=== PATIENT | female | born 1945 | race Caucasian/White ===

== ENCOUNTER 2024-08-18 12:58 | Outpatient (AMB) | payer MEDICARE, SELFPAY ==
[2024-08-18 13:14] VITALS: BP 158/79; PULSE 66; RESP 19; TEMP 36.7; O2SAT 96; BMI 29.1
--- NOTE | 2024-08-18 13:14 | PD.GSCLVISIT ---
[facility] Sign[facility] - [facility] 08/18/24 13:14 Height 1.55 m Height Method Stated Weight 69.882 kg Weight Measurement Method Standing Scale BMI 29.1 BP 158/79 H Blood Pressure Source Automatic Cuff Blood Pressure Location Left Upper Arm Position Sitting Respiration 19 Pulse 66 Pulse Source Monitor Temp 98.1 F Temp Source Temporal Artery Scan Pulse Oximetry (%) 96 Oxygen Delivery Method Room Air Med/Allergies Allergies & Medications Allergies No Known Allergies Allergy (Verified 08/18/24 13:16) Medication Reconciliation simvastatin 40 mg tablet (Zocor) 40 mg PO HS #0 tabs 03/08/15 [History Confirmed 08/18/24] aspirin 81 mg tablet,delayed release 81 mg PO QDAY 11/12/18 [History Confirmed 08/18/24] celecoxib 200 mg capsule 200 mg PO DAILY 03/02/19 [History Confirmed 08/18/24] hydrochlorothiazide 12.5 mg tablet 12.5 mg PO QDAY 03/02/19 [History Confirmed 08/18/24] hydrocodone 5 mg-acetaminophen 325 mg tablet ([place]) 1 tab PO Q6H PRN pain #30 tabs 03/03/19 [Rx Confirmed 08/18/24] MA Intake Visit Data Collection New Patient or Established: New Patient (never been to [facility]) Seen by Clinical Staff ONLY (RN/MA): No Reason for Visit:: REFERRAL COLONOSCOPY Pain Present Currently: No Commercial Pest Control Technician Required: No PCP or OBGYN visit in last 3 months: Yes Hx Now: No Do You Feel Safe at Home: Yes Authorities Contacted: N/A Smoking Status Smoking Status: Never smoker Immunization / Flu Flu Vaccine in the Last 12 Months: Yes Flu Vaccine Exclusion Criteria: Already Received Past Medical History Past Medical History NEUROLOGIC: Negative Neurological Disorders or Seizures CARDIAC: Positive Cardiac Disorders, Hypercholesterolemia (TAKES MED) and Hypertension (TAKES MED); Negative Congestive Heart Failure RESPIRATORY: Negative Chronic Obstructive Pulmonary Disease (COPD) GASTROINTESTINAL: Positive Gastrointestinal Disorders and Gall Bladder Disease (LAP) GENITOURINARY: Negative Genitourinary Disorders (INC OF URINE FOR THIS PROC) or Renal Disease REPRODUCTIVE: Positive Previous Pregnancies (X3) MUSCULOSKELETAL: Positive Arthritis (OSTEOARTHRITIS) ENT: Positive Cataracts (BILAT) ENDOCRINE: Negative Endocrine Disorders, Diabetes Mellitus Type 1 or Diabetes Mellitus Type 2 HEMATOLOGIC: Negative Blood Disorders OTHER HISTORY: Positive Chicken Pox and Measles; Negative Hospitalization, Autoimmune Disease, Shingles, Falls, Blood Transfusions, Blood Transfusion Reaction, Anesthesia Reactions, Chemotherapy, Radiation Therapy, MRSA or Cancer Family History FAMILY HISTORY: Positive Family Respiratory Disorders (MOTHER (EMPHYSEMA)), Family Cardiac Disorders (FATHER (MD)), Family Gastrointestinal Problems (FATHER (ULCER)), Family Cancer (MOTHER (LIVER)) and Family Surgery (FATHER,BROTHER); Negative Family Psychiatric Problems or Family Anesthesia Reaction Surgical History SURGICAL: Positive Abdominal Surgery and Hysterectomy (DANTE SALPING); Negative Cardiac Surgery Social History SMOKING STATUS: Smoking status: Never smoker ALCOHOL: Alcohol Intake: Current HOUSING: Housing: House HPI HPI Narrative 79F with HTN, HLD referred for fecal incontinence. Pt states she has had this problem for a long time but it seems worse in the last year or so; she sometimes has episodes where she is unable to make it to the bathroom or has to cain. She denies any incontinence to flatulence and has not had any episodes of unknowingly defecating. Pt reports that she has constipation at baseline, her stools are either hard and require straining or are very loose. She does not take any fiber, laxatives or stool softeners and admits that during winter she does not drink as much water as in summer. Her last colonoscopy was in 2010 and was normal, and she denies any change in stool caliber, anorexia and unintentional weight loss PMH: HTN, HLD, urinary incontinence, RA PSHx: Hysterectomy, knee surgeries, cholecystectomy Meds: Solifenacin, xanax, HCTZ, simvastatin Allergies: NKDA Social hx: gave vaginally x3, nonsmoker Family hx: mother had liver CA, no other known malignancies ROS Review of Systems Systems Reviewed: All systems reviewed, normal except as documented Objective/Exam General General Appearance: alert, cooperative and well groomed Resp Respiratory exam: Absent respiratory distress Assessment & Plan Diagnosis / Problem List (1) Fecal incontinence: Status: Acute Assessment & Plan: 79F with HTN, HLD, history of three vaginal deliveries and baseline constipation presenting with fecal incontinence. I explained that improving constipation could improve her symptoms by allowing her to fully evacuate; I encouraged her to increase water intake for goal of 2L daily as tolerated, and once she is used to that she should begin fiber supplementation. I did offer colonoscopy to evaluate for any other causes and explained prep as well as benefits/risks such as bleeding, perforation requiring surgery or the need to abort prematurely for safety. All questions were answered and pt is agreeable to proceeding Advanced Care Planning Advance care planning discussed with:: patient Office Procedures GNS Level of Care Nursing/Assessment Patient Status: Initial/New Patient Nursing Assessment/Reassesment: Medication Reconciliation, Update PMH in EMR and Vital Signs Coordination of Care: Complex Care and Chronic Disease 1-5, Consent,records obtained, informed consent, Education Simp Pt/Fam, 1 Ins Authorization and Staff clarify orders New Patient Charge New Patient Point Assignment: 1099 New Patient Point Charge: WIRE BASKET MAKER Level 3 ([id number]) Patient Portal Questionaires Social History Living Situation History Housing: House Tobacco History Smoking Status: Never smoker Alcohol History Alcohol Intake: Current Domestic Abuse History Do You Feel Safe at Home: Yes Review of Systems Report any current symptoms Only answer those that you have currently: Past Medical History Past Medical History Have you ever been diagnosed with any of the following: Neurological Problems Seizures: No Cardiology Problems Hypercholesterolemia: Yes (TAKES MED) Congestive Heart Failure: No Hypertension: Yes (TAKES MED) Respiratory Problems Chronic Obstructive Pulmonary Disease (COPD): No Stomache/Intestinal Problems Gall Bladder Disease: Yes (LAP) Genital/Urinary Problems Renal Disease: No Reproductive Problems Previous Pregnancies: Yes (X3) Musculoskeletal Problems Arthritis: Yes (OSTEOARTHRITIS) Head,Eye,Nose,Throat Problems Cataracts: Yes (BILAT) Endocrine Problems Diabetes Mellitus Type 1: No Diabetes Mellitus Type 2: No Other Problems Hospitalization: No Autoimmune Disease: No Shingles: No Falls: No Blood Transfusions: No Blood Transfusion Reaction: No Anesthesia Reactions: No Chemotherapy: No Radiation Therapy: No MRSA: No Chicken Pox: Yes Measles: Yes Cancer: No Surgical History Hysterectomy: Yes (DANTE SALPING)
== END 2024-08-18 13:27 | disposition home or self-care (01) ==
LOC: HODSRG 12:58
PROVIDERS: PCP Family Medicine; Referring Provider Family Medicine; Supervising Provider Surgery; Visit Provider Surgery
DX: R15.9 Full incontinence of feces (principal)
CPT/HCPCS: 99203; G0463

== ENCOUNTER 2024-08-30 06:30 | Day surgery (SDC) | payer MEDICARE, SELFPAY ==
[2024-08-29 13:09] VITALS: BMI 28.1
[2024-08-30] VITALS (12 sets, daily range): BP systolic 110–172; BP diastolic 57–78; PULSE 57–69; RESP 12–19; TEMP 36.2–36.5; O2SAT 95–100; BMI 28.4
--- NOTE | 2024-08-30 08:10 | SUR.PHASEII ---
0810 Patient arrived to recovery, report received from Shadi HINES
--- NOTE | 2024-08-30 08:42 | SUR.PHASEII ---
0842 Patient meets discharge criteria from recovery, awake and alert, breathing unlabored, vital signs stable, denies pain, drinking water; denies nauseas, patient able to dress herself into her clothing, discharge instructions given to patient and patients , signed discharge instructions. Patient given all her belongings prior to discharge, transported via wheelchair and left in a private vehicle.
== END 2024-08-30 08:42 | disposition home or self-care (01) ==
PROVIDERS: PCP Family Medicine; Referring Provider Surgery; Visit Provider Surgery
PROC: 0DJD8ZZ Inspection of Lower Intestinal Tract, Via Natural or Artificial Opening Endoscopic (ICD-10-PCS; CPT 45378; principal; 2024-08-30 08:30)
DX: K62.1 Rectal polyp (principal); K62.89 Other specified diseases of anus and rectum; K64.9 Unspecified hemorrhoids; K57.30 Diverticulosis of large intestine without perforation or abscess without bleeding
CPT/HCPCS: 45380; A4649; J1200; J2250; J3010

== ENCOUNTER 2024-09-19 13:12 | Outpatient (AMB) | payer MEDICARE, SELFPAY ==
--- NOTE | 2024-09-19 13:20 | PD.GSCLVISIT ---
Vital Signs - [facility] 09/19/24 13:21 Height 1.55 m Height Method Stated Weight 67.217 kg Weight Measurement Method Standing Scale BMI 27.9 BP 114/63 Blood Pressure Source Automatic Cuff Blood Pressure Location Left Upper Arm Position Sitting Respiration 19 Pulse 76 Pulse Source Monitor Temp 95.8 F L Temp Source Temporal Artery Scan Pulse Oximetry (%) 96 Oxygen Delivery Method Room Air Med/Allergies Allergies & Medications Allergies No Known Allergies Allergy (Verified 09/19/24 13:21) Medication Reconciliation simvastatin 40 mg tablet (Zocor) 40 mg PO HS #0 tabs 03/08/15 [History Confirmed 09/19/24] hydrochlorothiazide 12.5 mg tablet 12.5 mg PO QDAY 03/02/19 [History Confirmed 09/19/24] solifenacin 5 mg tablet 5 mg PO DAILY Bladder control 08/29/24 [History Confirmed 09/19/24] MA Intake Visit Data Collection New Patient or Established: Established Patient (seen at [facility] within 3 years) Seen by Clinical Staff ONLY (RN/MA): No Reason for Visit:: COLONOSCOPY RESULTS Pain Present Currently: No PCP or OBGYN visit in last 3 months: Yes Hx Now: No Do You Feel Safe at Home: Yes Authorities Contacted: N/A Smoking Status Smoking Status: Never smoker Immunization / Flu Flu Vaccine in the Last 12 Months: No Flu Vaccine Exclusion Criteria: No Exclusion Criteria Past Medical History Past Medical History NEUROLOGIC: Negative Neurological Disorders or Seizures CARDIAC: Positive Cardiac Disorders, Hypercholesterolemia (TAKES MED) and Hypertension (TAKES MED); Negative Congestive Heart Failure RESPIRATORY: Negative Chronic Obstructive Pulmonary Disease (COPD) GASTROINTESTINAL: Positive Gastrointestinal Disorders and Gall Bladder Disease (LAP) GENITOURINARY: Negative Genitourinary Disorders (INC OF URINE FOR THIS PROC) or Renal Disease REPRODUCTIVE: Positive Previous Pregnancies (X3) MUSCULOSKELETAL: Positive Arthritis (OSTEOARTHRITIS) and Scoliosis ENT: Positive Cataracts (BILAT) ENDOCRINE: Negative Endocrine Disorders, Diabetes Mellitus Type 1 or Diabetes Mellitus Type 2 HEMATOLOGIC: Negative Blood Disorders OTHER HISTORY: Positive Chicken Pox and Measles; Negative Hospitalization, Autoimmune Disease, Shingles, Falls, Blood Transfusions, Anesthesia Reactions, Chemotherapy, Radiation Therapy, MRSA or Cancer Family History FAMILY HISTORY: Positive Family Respiratory Disorders (MOTHER (EMPHYSEMA)), Family Cardiac Disorders (FATHER ([place])), Family Gastrointestinal Problems (FATHER (ULCER)), Family Cancer (MOTHER (LIVER)) and Family Surgery (FATHER,BROTHER); Negative Family Psychiatric Problems or Family Anesthesia Reaction Surgical History SURGICAL: Positive Abdominal Surgery and Hysterectomy (DANTE SALPING); Negative Cardiac Surgery Social History SMOKING STATUS: Smoking status: Never smoker ALCOHOL: Alcohol Intake: Current HOUSING: Housing: House HPI HPI Narrative 79F referred for fecal incontinence here for follow up of colonoscopy. Pt reports feeling well overall, she has increased her water intake and begun fiber and has not had any recent episodes of incontinence although she still sometimes has urgency. She has no complaints regarding the colonosocpy ROS Review of Systems Systems Reviewed: All systems reviewed, normal except as documented Objective/Exam General General Appearance: alert, cooperative and well groomed Resp Respiratory exam: Absent respiratory distress Results Colonoscopy and pathology report reviewed: hyperplastic polyps Assessment & Plan Diagnosis / Problem List (1) Fecal incontinence: Status: Acute Assessment & Plan: 79F referred for fecal incontinence s/p colonoscopy with decreased sphincter tone, diverticulosis and hyperplastic polyps. I explained that she does not need to have any further colonoscopies unless symptoms concerning for malignancy arise; regarding her incontinence pt understands there are interventional options if necessary but because her symptoms have improved she is not interested in being referred to an applicable provider. Pt is encouraged to reach out with any concerns or questions Advanced Care Planning Advance care planning discussed with:: patient Office Procedures GNS Level of Care Nursing/Assessment Patient Status: Established Patient Nursing Assessment/Reassesment: Medication Reconciliation, Update PMH in EMR and Vital Signs Coordination of Care: Complex Care and Chronic Disease 1-5, Education Complex Pt/Fam, Consent,records obtained, informed consent, Results/Orders obtained and Staff clarify orders Established Patient Charge Established Patient Point Assignment: 95 Established Patient Point Charge: EP Level 3 (80-115) Patient Portal Questionaires Social History Living Situation History Housing: House Tobacco History Smoking Status: Never smoker Alcohol History Alcohol Intake: Current Domestic Abuse History Do You Feel Safe at Home: Yes Review of Systems Report any current symptoms Only answer those that you have currently: Past Medical History Past Medical History Have you ever been diagnosed with any of the following: Neurological Problems Seizures: No Cardiology Problems Hypercholesterolemia: Yes (TAKES MED) Congestive Heart Failure: No Hypertension: Yes (TAKES MED) Respiratory Problems Chronic Obstructive Pulmonary Disease (COPD): No Stomache/Intestinal Problems Gall Bladder Disease: Yes (LAP) Genital/Urinary Problems Renal Disease: No Reproductive Problems Previous Pregnancies: Yes (X3) Musculoskeletal Problems Arthritis: Yes (OSTEOARTHRITIS) Scoliosis: Yes Head,Eye,Nose,Throat Problems Cataracts: Yes (BILAT) Endocrine Problems Diabetes Mellitus Type 1: No Diabetes Mellitus Type 2: No Other Problems Hospitalization: No Autoimmune Disease: No Shingles: No Falls: No Blood Transfusions: No Anesthesia Reactions: No Chemotherapy: No Radiation Therapy: No MRSA: No Chicken Pox: Yes Measles: Yes Cancer: No Surgical History Hysterectomy: Yes (DANTE SALPING)
[2024-09-19 13:21] VITALS: BP 114/63; PULSE 76; RESP 19; TEMP 35.4; O2SAT 96; BMI 27.9
== END 2024-09-19 14:01 | disposition home or self-care (01) ==
LOC: HODSRG 13:12
PROVIDERS: Family Provider Family Medicine; PCP Family Medicine; Referring Provider Family Medicine; Supervising Provider Surgery; Visit Provider Surgery
DX: K57.90 Diverticulosis of intestine, part unspecified, without perforation or abscess without bleeding (principal); K63.5 Polyp of colon
CPT/HCPCS: 99213; G0463

== ENCOUNTER → 2024-11-11 | Outpatient (CLI) | payer MEDICARE, SELFPAY ==
--- NOTE | 2024-11-11 14:30 | XR_ITS ---
Examination: Screening digital mammography, bilateral Computer aided detection 3-D breast Tomosynthesis, bilateral Date and time of exam: November 11, 2024 1422 hours Compared to mammograms dating to March 15, 2015 Indication: Screening Technique: Nonmagnified MLO, CC views of the breasts to been obtained, reconstructed from 3-D Tomosynthesis images. R2 computer aided detection program utilized for evaluation of suspicious masses and/or abnormal calcifications. 3-D Tomosynthesis images obtained. Findings: Scattered areas of fibroglandular density Benign calcifications No interval suspicious masses Impression: BI-RADS category II: Benign Findings. Recommend 1 year follow-up mammogram.
== END | disposition home or self-care (01) ==
LOC: CDIM 14:05
PROVIDERS: Referring Provider Family Medicine; Visit Provider Family Medicine
DX: Z12.31 Encounter for screening mammogram for malignant neoplasm of breast (principal); R92.323 Mammographic fibroglandular density, bilateral breasts; R92.1 Mammographic calcification found on diagnostic imaging of breast
CPT/HCPCS: 77063; 77067

== ENCOUNTER 2024-11-21 10:43 | Emergency (ER) | payer MEDICARE, SELFPAY ==
[2024-11-21 11:14] VITALS: BP 177/74; PULSE 58; RESP 18; TEMP 36.9; O2SAT 100; BMI 27.3
--- NOTE | 2024-11-21 11:28 | EDNOTE_ITS ---
<Statement entered by Nemo Tracey MD - 11/21/24 14:46> As co-signing physician, I was present and available for consult prn. I concur with the plan and care as documented by the midlevel provider. ED General RME/HPI General Chief complaint: Extremity Injury, Lower Stated complaint: SENT FOR +DVT LLE Time Seen by Provider: 11/21/24 11:24 Arrival date/time: 11/21/24 10:43 CC: Left lower extremity pain HPI ongoing for the past 2 days. Seen after outpatient ultrasound shows a partially occlusive DVT femoral vein. Pain 2-3 on 10 scale. Denies chest pain shortness of breath difficulty breathing. Related Data Home Medications ?Medication ?Instructions ?Recorded ?Confirmed simvastatin 40 mg tablet (Zocor) 40 mg PO HS #0 tabs 0 03/08/15 09/19/24 hydrochlorothiazide 12.5 mg tablet 12.5 mg PO QDAY 02/1109/19/24 solifenacin 5 mg tablet 5 mg PO DAILY Bladder contro l 08/29/24 09/19/24 Previous Rx's ?Medication ?Instructions ?Recorded apixaban 2.5 mg tablet (Eliquis) 2.5 mg PO BID #30 tab s 11/21/24 Allergies Allergy/AdvReac Type Severity Reaction Status Date / Time No Known Allergies Allergy Verified 11/21/24 10:44 Review of Systems Review of Systems Narrative Review of Systems: GEN: No fever, no chills, no weight loss EYES: No discharge, no visual changes, no pain HEENT: No ear pain, no congestion, no sore throat PULM: No shortness of breath, no cough, no congestion CV: No chest pain, no dyspnea on exertion, no palpitations GI: No nausea, no vomiting, no diarrhea, no pain, no constipation : No frequency, no urgency, no dysuria MUSC/SKEL: No joint pain, no back pain SKIN: No rash PSYCH: No hallucinations, no depression HEME/LYMPH: No easy bleeding or bruising tendencies NEURO: No weakness, no headache Past Medical History Past Medical History NEUROLOGIC: Negative Neurological Disorders or Seizures CARDIAC: Positive Cardiac Disorders, Hypercholesterolemia (TAKES MED) and Hypertension (TAKES MED); Negative Congestive Heart Failure RESPIRATORY: Negative Chronic Obstructive Pulmonary Disease (COPD) GASTROINTESTINAL: Positive Gastrointestinal Disorders and Gall Bladder Disease (LAP) GENITOURINARY: Positive Genitourinary Disorders (BLADDER INCONTINENCE); Negative Renal Disease REPRODUCTIVE: Positive Previous Pregnancies (X3) MUSCULOSKELETAL: Positive Musculoskeletal Disorders, Arthritis (OSTEOARTHRITIS) and Scoliosis ENT: Positive Cataracts (BILAT) ENDOCRINE: Negative Endocrine Disorders, Diabetes Mellitus Type 1 or Diabetes Mellitus Type 2 HEMATOLOGIC: Negative Blood Disorders OTHER HISTORY: Positive Chicken Pox and Measles; Negative Hospitalization, Autoimmune Disease, Shingles, Falls, Blood Transfusions, Anesthesia Reactions, Chemotherapy, Radiation Therapy, MRSA or Cancer Family History FAMILY HISTORY: Positive Family Respiratory Disorders (MOTHER (EMPHYSEMA)), Family Cardiac Disorders (FATHER ([place])), Family Gastrointestinal Problems (FATHER (ULCER)), Family Cancer (MOTHER (LIVER)) and Family Surgery (FATHER,BROTHER); Negative Family Psychiatric Problems or Family Anesthesia Reaction Surgical History SURGICAL: Positive Abdominal Surgery and Hysterectomy (DANTE SALPING); Negative Cardiac Surgery Social History SMOKING STATUS: Never smoker ED Exam Narrative Physical exam: [General: not in any acute distress Head normocephalic HEENT: Within acceptable limits Neck is supple nontender Chest equal chest rise nontender to palpation Respiratory: Clear to auscultation no wheezes crackles or rubs CV: Rate rhythm is regular no murmurs rubs or clicks Abdomen is soft nontender no masses positive bowel sounds all 4 quadrants Back: No CVA tenderness no spinous process tenderness from cervical spine thoracic and lumbar spine Skin: Intact no petechiae rash induration ulceration or crepitus Extremities: Mild tenderness to the left lower extremity laterally just distal to the knee. No posterior fossa tenderness. Moving all extremities against resistance cap refill less than 2 seconds neurosensory intact Neuro: Awake alert oriented x3 Glascow coma 15 no focal deficits] Course Quality Measures none Orders Category Date Time Status CBC Stat Lab 11/21/24 11:48 Completed Comprehensive Metabolic Panel Stat Lab 11/21/24 11:48 Completed Partial Thromboplastin Time Stat Lab 11/21/24 11:48 Completed Prothrombin Time with INR Stat Lab 11/21/24 11:48 Completed Apixaban [Eliquis] Med 11/21/24 12:32 Discontinued 2.5 mg PO X1 ONE Vital Signs Vital signs: Vital Signs Temperature 98.4 F 11/21/24 11:14 Pulse Rate 58 L 11/21/24 11:14 Respiratory Rate 18 11/21/24 11:14 Blood Pressure 177/74 H 11/21/24 11:14 Pulse Oximetry (%) 100 11/21/24 11:14 Oxygen Delivery Method Room Air 11/21/24 11:14 Discharge Plan Plan Patient Disposition: HOME (Self Care) Patient condition on transfer: Stable Prescriptions/Referrals Prescriptions/Med Rec: New Eliquis 2.5 mg tablet 2.5 mg PO BID Qty: 30 1RF No Action simvastatin [Zocor] 40 MG tablet 40 mg PO HS Qty: 0 hydrochlorothiazide 12.5 mg Tablet 12.5 mg PO QDAY solifenacin 5 mg tablet 5 mg PO DAILY Referrals: Artie Perez MD [Primary Care Provider] - In 1 week Problem List Clinical Impression: Deep vein thrombosis (DVT) of femoral vein Patient/Caregiver Discharge Instructions Education Materials: ED Deep Vein Thrombosis (DVT) Print Language: Colombian Stand Alone Forms: Edith Award Info., Patient Portal Info Letter, Work/School Release PA/DAYCARE PROVIDER Supervising Physician PA/DAYCARE PROVIDER Supervising Physician: Jah Colbert ENP MDM Patient Acuity Low Acuity (complete MDM as needed) Clinical Information Provided by: patient Medical Records reviewed None Chronic Illness/Social Conditions Explain: hypertension hyperlipidemia Labs Lab(s) Interpretation(s): CBC shows no acute leukocytosis anemia thrombocytopenia Coags within acceptable limits CMP shows sodium 130 chloride of 97 gap of 6 no other electrolyte imbalances renal impairment or transaminitis no T. bili elevation. Outpatient ultrasound shows a nonocclusive DVT of the femoral vein. Medication Administration(s) Medication Administration History Discontinued Medications Apixaban (Apixaban 2.5 Mg Tablet) 2.5 mg PO X1 ONE Stop: 11/21/24 12:33 Diagnosis Differential Diagnosis ED Complaint MDM: DVT superficial thrombophlebitis cellulitis
[2024-11-21 12:15] LABS: Partial Thromboplastin Time 26.2 Seconds (22.0-36.0); Prothrombin Time 10.7 Seconds (9.0-12.2)
[2024-11-21 12:19] LABS: Basophils % (Auto) 1 % (0-2.5); Eosinophils # (Auto) 0.1 Thou/mm3 (0.0-0.5); Eosinophils % (Auto) 2 % (0-10); Hematocrit 40.9 % (36.0-46.0); Hemoglobin 14.3 g/dL (12.0-16.0); Immature Granulocytes % (Auto) 0 % (0-0); Immature Granulocytes Auto 0.02 Thou/mm3 (0.00-0.00); Lymphocytes # (Auto) 1.5 Thou/mm3 (1.0-4.8); Lymphocytes % (Auto) 23 % (10-50); Mean Corpuscular Hemoglobin 32.8 pg (25.0-35.0); Mean Corpuscular Volume 94 fL (80-100); Monocytes # (Auto) 0.7 Thou/mm3 (0.0-0.8); Monocytes % (Auto) 10 % (0-12); Neutrophils # (Auto) 4.3 Thou/mm3 (1.8-7.7); Neutrophils % (Auto) 65 % (37-80); Nucleated Red Blood Cell % 0 /100 WBC (0); Platelet Count 270 Thou/mm3 (140-440); RDW Standard Deviation 43.8 fL (36.4-46.3); Red Blood Count 4.36 Miln/mm3 (4.00-5.20); White Blood Count 6.7 Thou/mm3 (3.6-11.0)
[2024-11-21 12:20] LABS: Alanine Aminotransferase 13 U/L (10-49); Albumin/Globulin Ratio 1.7 (1.2-2.2); Alkaline Phosphatase 72 U/L (46-116); Anion Gap 6 (7-16); Aspartate Amino Transferase 21 U/L (0-34); BUN/Creatinine Ratio 20 Ratio (12-20); Bilirubin,Total 0.8 mg/dL (0.3-1.2); Blood Urea Nitrogen 14 mg/dL (9-23); Calcium 9.2 mg/dL (8.3-10.6); Calcium (Corrected) 9.2 mg/dL (8.5-10.1); Carbon Dioxide 27.3 mMol/L (20.0-31.0); Chloride 97 mMol/L (98-107); Creatinine (Component) 0.7 mg/dL (0.6-1.3); Estimated Creatinine Clearance 54.7 mL/min (>60); Globulin 2.3 gm/dL (2.3-3.5); Glucose 97 mg/dL (74-106); Osmolality,Calculated 261 (275-295); Potassium 3.8 mMol/L (3.4-5.1); Sodium 130 mMol/L (136-145); Total Protein 6.3 gm/dL (5.7-8.2); eGFR > 60 See Note
[2024-11-21 12:25] VITALS: BP 153/82; PULSE 56; RESP 19; TEMP 36.8; O2SAT 95
[2024-11-21] MEDS: APIXABAN 2.5 MG TABLET PO (12:47)
[2024-11-21 12:59] VITALS: BP 153/82; PULSE 55; RESP 19; O2SAT 100
== END 2024-11-21 12:59 | disposition home or self-care (01) ==
PROVIDERS: Nurse Practitioner Primary Care; Emergency Provider Emergency Medicine; PCP Family Medicine
DX: I80.02 Phlebitis and thrombophlebitis of superficial vessels of left lower extremity (principal); L03.90 Cellulitis, unspecified
CPT/HCPCS: 36415; 80053; 85025; 85610; 85730; 99283; A9270

== ENCOUNTER → 2024-11-21 | Outpatient (CLI) | payer MEDICARE, SELFPAY ==
--- NOTE | 2024-11-21 09:54 | XR_ITS ---
Examination: Duplex scan of the lower extremity, unilateral left complete Date and time of exam: November 21, 2024 1005 hours INDICATIONS: Left calf pain beginning 6 days ago Technique: Duplex scan of the extremity veins using B-mode/grayscale imaging and Doppler spectral analysis and color flow Attention is directed to internal echogenicity, compression and augmentation involving these veins, color flow assessment, spectral analysis Findings: Positive for nonocclusive DVT in the left common femoral vein Left superficial femoral popliteal perineal posterior tibial and greater saphenous veins are open IMPRESSION: Positive for nonocclusive DVT in the left common femoral vein
== END | disposition home or self-care (01) ==
PROVIDERS: PCP Family Medicine; Referring Provider Nurse Practitioner Family; Visit Provider Nurse Practitioner Family
DX: I82.412 Acute embolism and thrombosis of left femoral vein (principal)
CPT/HCPCS: 93971

== ENCOUNTER → 2024-12-22 | Outpatient (CLI) | payer MEDICARE, SELFPAY ==
--- NOTE | 2024-12-22 13:26 | XR_ITS ---
Examination: Duplex scan of the lower extremity, unilateral left complete Date and time of exam: December 22, 2024 1355 hours INDICATIONS: Venous Doppler 15/03/2025 positive for nonocclusive DVT in the left common femoral vein, patient is anticoagulated Technique: Duplex scan of the extremity veins using B-mode/grayscale imaging and Doppler spectral analysis and color flow Attention is directed to internal echogenicity, compression and augmentation involving these veins, color flow assessment, spectral analysis Findings: There remains DVT in the left common femoral vein Remaining venous system is open IMPRESSION: There remains nonocclusive DVT in the left common femoral vein
== END | disposition home or self-care (01) ==
LOC: CDIM 13:07
PROVIDERS: PCP Family Medicine; Referring Provider Registered Nurse; Visit Provider Registered Nurse
DX: I82.412 Acute embolism and thrombosis of left femoral vein (principal)
CPT/HCPCS: 93971

== ENCOUNTER → 2025-03-09 | Outpatient (CLI) | payer MEDICARE, SELFPAY ==
--- NOTE | 2025-03-09 13:00 | XR_ITS ---
No acute hip radiating to both the right ureter on the lordotic nature lateral because first trimester exam date the radiographic table. I would certainly Examination: CT chest, without intravenous contrast. Sagittal and coronal 2-D reconstructions. Exam date and time: March 09, 2025 1339 hours INDICATIONS: Diagnosis encounter screening for malignant neoplasm of the lung, smoking history 30 years CTDI:vol (mGy) 8.23 DLP: (mGycm) 273 Technique: Multiple 3.0 mm axial sections of the chest to been obtained. Bone and lung density settings are obtained. Sagittal and coronal 2-D reconstructions have been obtained. Low dose protocols were performed. One or more of the following dose reduction techniques were used; automated exposure control, adjustment of the mA and/or KV according to patient size, use of iterative reconstruction technique. Findings: Thoracic aortic calcification no aneurysmal dilatation Pulmonary artery segments are not enlarged No paratracheal tracheobronchial or bronchopulmonary adenopathy 3 mm pleural-based pulmonary nodule right upper lobe image 136 No lobar pneumonia or pulmonary edema Absent gallbladder Kidneys partially visualized no hydronephrosis No liver lesion IMPRESSION: 3 mm pleural-based pulmonary nodule right upper lobe, with this study as baseline recommend continued 6 month follow-up CT chest without contrast
== END | disposition home or self-care (01) ==
LOC: CCTX 13:01
PROVIDERS: PCP Internal Medicine; Referring Provider Internal Medicine; Visit Provider Internal Medicine
DX: R91.1 Solitary pulmonary nodule (principal); Z87.891 Personal history of nicotine dependence
CPT/HCPCS: 71271

== ENCOUNTER → 2025-04-10 | Outpatient (CLI) | payer MEDICARE, SELFPAY ==
[2025-04-10 10:55] LABS: Basophils # (Auto) 0.1 Thou/mm3 (0.0-0.2); Basophils % (Auto) 1 % (0-2.5); Eosinophils # (Auto) 0.1 Thou/mm3 (0.0-0.5); Eosinophils % (Auto) 3 % (0-10); Hematocrit 43.9 % (36.0-46.0); Hemoglobin 14.8 g/dL (12.0-16.0); Immature Granulocytes Auto 0.02 Thou/mm3 (0.00-0.00); Lymphocytes # (Auto) 1.0 Thou/mm3 (1.0-4.8); Lymphocytes % (Auto) 19 % (10-50); Mean Corpuscular HGB Conc 33.7 g/dl (31.0-37.0); Mean Corpuscular Hemoglobin 33.0 pg (25.0-35.0); Mean Corpuscular Volume 98 fL (80-100); Monocytes # (Auto) 0.4 Thou/mm3 (0.0-0.8); Monocytes % (Auto) 8 % (0-12); Neutrophils # (Auto) 3.9 Thou/mm3 (1.8-7.7); Neutrophils % (Auto) 70 % (37-80); Nucleated Red Blood Cell # 0.00 Thou/mm3 (0.00-0.00); Nucleated Red Blood Cell % 0 /100 WBC (0); Platelet Count 279 Thou/mm3 (140-440); RDW Standard Deviation 46.1 fL (36.4-46.3); Red Blood Count 4.49 Miln/mm3 (4.00-5.20); White Blood Count 5.5 Thou/mm3 (3.6-11.0)
[2025-04-10 11:07] LABS: Alanine Aminotransferase 13 U/L (10-49); Albumin, Serum 4.1 gm/dL (3.4-4.8); Albumin/Globulin Ratio 2.2 (1.2-2.2); Alkaline Phosphatase 66 U/L (46-116); Anion Gap 6 (7-16); Aspartate Amino Transferase 21 U/L (0-34); BUN/Creatinine Ratio 16 Ratio (12-20); Bilirubin,Total 0.6 mg/dL (0.3-1.2); Blood Urea Nitrogen 11 mg/dL (9-23); Calcium 9.5 mg/dL (8.3-10.6); Calcium (Corrected) 9.5 mg/dL (8.5-10.1); Carbon Dioxide 29.3 mMol/L (20.0-31.0); Cardiac Risk Estimate 2.3 RATIO (3.7-5.6); Chloride 98 mMol/L (98-107); Cholesterol 156 mg/dL (132-200); Creatinine (Component) 0.7 mg/dL (0.6-1.3); Globulin 1.9 gm/dL (2.3-3.5); Glucose 95 mg/dL (74-106); HDL Cholesterol 68 mg/dL (40-60); LDL Cholesterol,Calculated 75 mg/dL (0-130); Osmolality,Calculated 265 (275-295); Potassium 4.6 mMol/L (3.4-5.1); Sodium 133 mMol/L (136-145); Thyroid Stimulating Hormone 2.84 uIU/mL (0.55-4.78); Total Protein 6.0 gm/dL (5.7-8.2); Triglycerides 67 mg/dL (30-150); Uric Acid 3.3 mg/dL (3.1-7.8); eGFR > 60 See Note
[2025-04-10 11:09] LABS: Collection Type, Urine Clean Catch
[2025-04-10 11:18] LABS: Vitamin B12 657 pg/mL (211-911); Vitamin D 25 Hydroxy Total 37.0 ng/mL (7.3-40.2)
[2025-04-10 11:46] LABS: Glucose Estimated Average 97 mg/dL (80-131); Hemoglobin A1C 5.0 % Hgb (4.8-6.0)
[2025-04-10 11:50] LABS: Bilirubin,Urine Negative (Negative); Blood,Urine Negative (Negative); Clarity,Urine Clear (Clear/Hazy); Color,Urine Lt-Yellow (Lt Yel-Yel); Glucose, Urine Negative (Negative); Ketones,Urine Negative (Negative); Leukocyte Esterase,Urine Positive (Negative); Nitrite,Urine Negative (Negative); PH,Urine 6.5 (5.0-7.0); Protein,Urine Negative (Neg - Trace); RBC,Urine 4 /hpf (0-3); Specific Gravity,Urine 1.014 (1.001-1.035); Squamous Epithelial Cell,Urine < 1 /hpf (0-5); Urobilinogen,Urine Negative mg/dL (0.0-1.0); WBC,Urine 21 /hpf (0-5)
== END | disposition home or self-care (01) ==
LOC: COPL 09:40
PROVIDERS: PCP Internal Medicine; Referring Provider Internal Medicine; Visit Provider Internal Medicine
DX: Z00.00 Encounter for general adult medical examination without abnormal findings (principal); I10 Essential (primary) hypertension; E78.5 Hyperlipidemia, unspecified; D51.9 Vitamin B12 deficiency anemia, unspecified; E55.9 Vitamin D deficiency, unspecified
CPT/HCPCS: 36415; 80053; 80061; 81001; 82306; 82607; 83036; 84443; 84550; 85025